=== PATIENT | female | born 1975 | race Hispanic/Latino ===

== ENCOUNTER 2019-12-01 13:44 | Emergency (ER) | payer OTHER ==
[2019-12-01 15:09] LABS: RAPID GROUP A STREP NEGATIVE (NEGATIVE)
== END 2019-12-01 15:40 | disposition home or self-care (01) ==
LOC: EDH 13:44
DX: B34.9 Viral infection, unspecified (principal); Z88.6 Allergy status to analgesic agent; Z72.0 Tobacco use
CPT/HCPCS: 87804; 87880